=== PATIENT | female | born 1960 | race Caucasian/White ===

== ENCOUNTER 2016-11-27 16:11 | Emergency (ER) | payer MEDICAID ==
[~2016-11-27] VITALS: Ht 162.6 cm; Wt 72.6 kg
[2016-11-27 16:24] VITALS: BP 118/65
--- NOTE | 2016-11-27 16:43 | NUR ---
Patient ambulated to bed 06.
--- NOTE | 2016-11-27 17:06 | NUR ---
56/F c/o diarrhea, chills and generalized weakness for the past 3 days. Pt reports having 2-3 episodes of loose, watery stools daily. Denies nausea or vomiting. Pt also c/o cramps to arms and legs, chills, fever last night, afebrile at this time. Pt c/o mid abdominal pain, dull, intermittent, 8/10. Abdomen soft, non tender, hypoactive bowel sounds x4 quadrants. AOX4, clear speech, ambulatory with steady gait. VSS.
--- NOTE | 2016-11-27 17:35 | NUR ---
Patient being evaluated by physician at bedside.
--- NOTE | 2016-11-27 17:35 | NUR ---
Dr. Narvaez evluating patient at bedside.
[2016-11-27] MEDS ORDERED: KETOROLAC 60 MG/2 ML VIAL IM ONE (17:45)
[2016-11-27 17:59] LABS: BASOPHILS # (AUTO) 0.1 K/uL (0.00-0.22); BASOPHILS % (AUTO) 2.7 % (0.0-2.0); EOSINOPHILS # (AUTO) 0.1 K/uL (0-0.4); EOSINOPHILS % (AUTO) 2.3 % (0.0-4.0); HEMATOCRIT 33.6 % (36-48); HEMOGLOBIN 11.1 g/dL (12.0-16.0); LYMPHOCYTES # (AUTO) 0.7 K/uL (2.5-16.5); LYMPHOCYTES % (AUTO) 14.9 % (20.5-51.1); MEAN CORPUSCULAR HEMOGLOBIN 33 pg (27-31); MEAN CORPUSCULAR HGB CONC 33 g/dL (33-37); MEAN CORPUSCULAR VOLUME 99 fL (80-94); MONOCYTES # (AUTO) 0.3 K/uL (0.8-1.0); MONOCYTES % (AUTO) 5.2 % (1.7-9.3); NEUTROPHILS # (AUTO) 3.8 K/uL (1.8-7.7); NEUTROPHILS % (AUTO) 74.9 % (42.2-75.2); PLATELET COUNT (AUTO) 170 K/uL (140-450); RED CELL DISTRIBUTION WIDTH 12.8 % (11.6-13.7)
[2016-11-27 18:05] LABS: ANION GAP 12.5 (8-16); CALCIUM 6.1 mg/dL (8.5-10.1); CARBON DIOXIDE 25.8 mmol/L (21-32); CREATININE 0.6 mg/dL (0.6-1.3); POTASSIUM 3.3 mmol/L (3.5-5.1)
[2016-11-27 18:12] LABS: ALBUMIN 3.4 g/dL (3.4-5.0); TOTAL BILIRUBIN 0.4 mg/dL (0.0-1.0); TOTAL PROTEIN, SERUM 7.1 g/dL (6.4-8.2)
[2016-11-27 18:13] LABS: PARTIAL THROMBOPLASTIN TIME 34.2 secs (22-35.6); PROTHROMBIN TIME 20.2 secs (10.8-13.4)
[2016-11-27] MEDS ORDERED: POTASSIUM CHLORIDE 10 MEQ TABER PO ONE (18:25)
[2016-11-27 19:05] VITALS: BP 116/73
--- NOTE | 2016-11-27 19:06 | NUR ---
Patient discharged with v/s stable. Written and verbal after care instructions given and explained. Patient alert, oriented and verbalized understanding of instructions. Ambulatory with steady gait. All questions addressed prior to discharge. ID band removed. Patient advised to follow up with PMD. Rx of MOTRIN, CIPRO, IMMODIUM given. Patient educated on indication of medication including possible reaction and side effects. Opportunity to ask questions provided and answered.
== END 2016-11-27 19:05 | disposition home or self-care (01) ==
LOC: MED 16:11
DX: R10.13 Epigastric pain (principal); R19.7 Diarrhea, unspecified; E87.6 Hypokalemia; Z88.8 Allergy status to other drugs, medicaments and biological substances
CPT/HCPCS: 36415; 80053; 81002; 81025; 85025; 85610; 85730; 96372; 99284; J1885